=== PATIENT | female | born 2000 | race Caucasian/White ===

== ENCOUNTER 2021-01-09 11:44 | Emergency (ER) | payer OTHER, SELFPAY ==
[2021-01-09 11:50] VITALS: BP 131/76; PULSE 78; RESP 12; TEMP 36.8; O2SAT 100
--- NOTE | 2021-01-09 12:19 | ED.GENADULT ---
HPI - General Adult General Chief complaint: Wound/Laceration Stated complaint: lt pinkie finger laceration Source: patient and family Mode of arrival: ambulatory Limitations: no limitations History of Present Illness HPI narrative: Patient is a 20-year-old female who presents to the urgent care via POV for evaluation of the left at that digit laceration that occurred at 4 PM yesterday. She states she accidentally lacerated finger with a knife while cutting watermelon. She reports cleaning the wound with water and applying Neosporin. She is resting in a sterile gauze with a Band-Aid. Related Data Home Medications Medication Instructions Recorded Confirmed No Home Medications 01/09/21 01/09/21 Allergies Allergy/AdvReac Type Severity Reaction Status Date / Time No Known Allergies Allergy Verified 01/09/21 11:58 Review of Systems Review of Systems: Pertinent negatives fever, chills, sweats, malaise, poor p.o. intake, change in appetite, headache, LOC, dizziness, streaking, drainage, numbness, tingling, loss of sensation, foreign body sensation, deformity, sob, chest pain, and heart palpitations/murmurs. Exam Narrative: GENERAL: Well-appearing, well-nourished, and in no acute distress. HEAD: Normocephalic, atraumatic. No facial swelling appreciated. EYES: PERRLA and EOMI. No evidence of erythema, swelling, or drainage. ENT: Nares clear, no rhinorrhea or epistaxis.Mucous membranes moist and pink. Uvula is midline without erythema and swelling. No evidence of obstruction, petechial rash, cobblestoning, lesions, ulcers, erythema, swelling, exudates, peritonsillar abscess, tenting, or drooling. Breath odor and voice normal. NECK: Supple. No Lymphadenopathy or nuchal rigidity appreciated. CHEST: Bilateral lung bass are clear to auscultation. No respiratory distress. No evidence of cough or pleuritic cp upon examination. HEART: Regular rate and rhythm. No murmur, gallop, or rub heard. EXTREMITIES: Normal range of motion. No edema. SKIN: Warm, dry. 0.5 cm laceration located on palmar aspect of left fifth digit. No evidence of cellulitis, abscess, streaking, induration, abrasions, petechiae, hematoma, contusion, drainage, or bleeding. NEURO: No focal deficits. Alert and oriented x3. SPECIAL OBSERVATIONS: Smiling. Laughing. Course Vital Signs Vital signs: Vital Signs Temperature 98.2 F 01/09/21 11:50 Pulse Rate 78 01/09/21 11:50 Respiratory Rate 12 01/09/21 11:50 Blood Pressure 131/76 01/09/21 11:50 Pulse Oximetry 100 01/09/21 11:50 Temperature 98.2 F 01/09/21 11:50 Pulse Rate 78 01/09/21 11:50 Respiratory Rate 12 01/09/21 11:50 Blood Pressure 131/76 01/09/21 11:50 Pulse Oximetry 100 01/09/21 11:50 Due to an elevated blood pressure, I had a detailed discussion with the patient and/or guardian regarding the need for follow-up with their primary care provider within the next 3-4 days. Patient verbalized understanding and agreed. Procedures Orthopedic Splinting/Casting Injury #1: Splinting/Casting Date: 01/09/21 Side: left Upper Extremity Injury Location: finger (5th) Upper Extremity Immobilizer: aluminum form splint Pre-Procedure Neuro Vascular Exam: normal Post-Procedure Neuro Vascular Exam: normal Medical Decision Making Differential Diagnosis Differential Diagnosis: Laceration, avulsion, abrasion Medical Records Medical records reviewed: Yes I reviewed the external patient's medical records. Vital Signs Vital Signs: Vital Signs Temperature 98.2 F 01/09/21 11:50 Pulse Rate 78 01/09/21 11:50 Respiratory Rate 12 01/09/21 11:50 Blood Pressure 131/76 01/09/21 11:50 Pulse Oximetry 100 01/09/21 11:50 Temperature 98.2 F 01/09/21 11:50 Pulse Rate 78 01/09/21 11:50 Respiratory Rate 12 01/09/21 11:50 Blood Pressure 131/76 01/09/21 11:50 Pulse Oximetry 100 01/09/21 11:50 Reviewed Critical Care
== END 2021-01-09 12:47 | disposition home or self-care (01) ==
PROVIDERS: Emergency Provider Nurse Practitioner Family
DX: S61.217A Laceration without foreign body of left little finger without damage to nail, initial encounter (principal); W26.0XXA Contact with knife, initial encounter
CPT/HCPCS: 29130; 99212; G0463

== ENCOUNTER 2021-02-01 17:00 | Emergency (ER) | payer OTHER, SELFPAY ==
--- NOTE | 2021-02-01 17:04 | ED.FEMALEGU ---
HPI - Female Genitourinary General Chief complaint: Urogenital-Female Stated complaint: UTI SYMPTOMS History of Present Illness HPI Narrative: This is a 20-year-old female that presents to urgent care complaining of dysuria, frequency states she has a UTI. Patient states her symptoms started Saturday took Azo approximately 4 hours ago. Patient denies any fever nausea vomiting and/or diarrhea Related Data Allergies Allergy/AdvReac Type Severity Reaction Status Date / Time No Known Allergies Allergy Verified 01/09/21 11:58 Review of Systems Review of Systems: gi dysuria, frequency, urgency All systems reviewed & are unremarkable except as noted in HPI and below PMFSH Comments At time as signature, I have reviewed and agree with nursing past medical, social, surgical and family history. Please see nursing chart for further information. There is no relevant family history pertinent to the presenting complaint. Exam Narrative: GENERAL:Well-appearing, well-nourished, and in no acute distress. HEAD:Normocephalic, atraumatic. EYES: PERRLA and EOMI. ENT: Nares clear, no rhinorrhea or epistaxis. Mucous membranes moist. NECK: Supple. CHEST: No respiratory distress. HEART: Regular rate and rhythm. ABDOMEN: Soft, nontender, nondistended, normal active bowel sounds. Dysuria EXTREMITIES: Normal range of motion. No edema. SKIN: Warm, dry, no rash. NEURO: No focal deficits. Alert and oriented x3. Course Course Emergency Course: Patient took Azo prior to coming positive for blood, ketones, nitrates, bacteria Vital Signs Vital signs: Vital Signs Temperature 98.4 F 02/01/21 17:07 Pulse Rate 81 02/01/21 17:07 Respiratory Rate 16 02/01/21 17:07 Blood Pressure 127/90 02/01/21 17:07 Pulse Oximetry 98 02/01/21 17:07 Temperature 98.4 F 02/01/21 17:07 Pulse Rate 81 02/01/21 17:07 Respiratory Rate 16 02/01/21 17:07 Blood Pressure 127/90 02/01/21 17:07 Pulse Oximetry 98 02/01/21 17:07 MDM - Female Genitourinary Differential Diagnosis Differential diagnosis: Likely urinary tract infection, bacterial vaginosis, trichomoniasis, cervicitis and cystitis Discharge Plan Discharge Clinical Impression: UTI (urinary tract infection) Qualifiers: Urinary tract infection type: site unspecified Hematuria presence: without hematuria Qualified Code(s): N39.0 - Urinary tract infection, site not specified Patient Disposition: Home, Self-Care Condition: Stable Instructions: Antibiotic Form, Urinary Tract Infection in Women (ED) Additional Instructions: We will send a urine culture off to the lab; if the culture identifies an organism that the prescribed antibiotic will not treat, you will receive a phone call from an urgent care staff member and an appropriate antibiotic will be prescribed. Increase fluids especially water Avoid caffeine and carbonated beverages Antibiotic as directed Medicine as directed--cautioned it will cause your urine to be bright orange Tylenol/ibuprofen prn for pain or fever Follow-up with your primary care provider for urine recheck or seek ER visit if condition worsens with high fever, nausea, vomiting and severe back pain. Prescriptions: New nitrofurantoin monohyd/m-cryst [Macrobid] 100 mg capsule 100 mg PO Q12H 5 Days Qty: 10 RF: 0 Follow-up/Referrals: PHYSICIAN NOT ON STAFF,NONSTAFF [Primary Care Provider] -
[2021-02-01 17:07] VITALS: BP 127/90; PULSE 81; RESP 16; TEMP 36.9; O2SAT 98
== END 2021-02-01 17:23 | disposition home or self-care (01) ==
PROVIDERS: Emergency Provider Nurse Practitioner Family
DX: N39.0 Urinary tract infection, site not specified (principal)
CPT/HCPCS: 81003; 87077; 87086; 87088; 87186; 99213; G0463

== ENCOUNTER 2021-05-31 14:57 | Emergency (ER) | payer OTHER, SELFPAY ==
[2021-05-31 15:05] VITALS: BP 137/78; PULSE 80; RESP 16; TEMP 36.8; O2SAT 100
[2021-05-31 15:07] VITALS: BP 137/78; PULSE 80; RESP 16; TEMP 36.8; O2SAT 100
--- NOTE | 2021-05-31 15:07 | ED.GENADULT ---
HPI - General Adult General Chief complaint: Dizziness Stated complaint: Nausea,Dizziness Time Seen by Provider: 05/31/21 15:07 Source: patient Mode of arrival: ambulatory Limitations: no limitations History of Present Illness HPI narrative: 20-year-old female presented for complaint of dizziness, onset yesterday. She endorses room spinning sensation starting at 0400 yesterday which progressed throughout the day. She endorses associated palpitations and nausea. 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 Today she woke feeling fatigued and hung over. Endorses history of occasional similar episodes of dizziness while standing, stating this is different because it occurs while seated. She denies shortness of breath, cough, sinus pressure congestion, headache, ear pain, vomiting, diarrhea, urinary complaints, fever or chills. She has taken several negative home tests. Denies significant medical history. No changes in medication. Fully vaccinated for Covid and flu. Related Data Home Medications Medication Instructions Recorded Confirmed norethindrone ac-eth estradiol 1 tablet DIRECTED 05/31/21 05/31/21 [Microgestin 05/25 ()] Allergies Allergy/AdvReac Type Severity Reaction Status Date / Time No Known Allergies Allergy Verified 01/09/21 11:58 Review of Systems Review of Systems: CONSTITUTIONAL: Denies body aches, fever, chills, or sweats. EYES: Denies visual changes, redness, or discharge. ENT: Denies rhinorrhea, congestion, sore throat, or otalgia. CARDIOVASCULAR: Denies chest pain, or edema. RESPIRATORY: Denies cough or dyspnea. GASTROINTESTINAL: Denies abdominal pain, vomiting, or diarrhea. GENITOURINARY: Denies dysuria or hematuria. SKIN: Denies rash, itching, or wounds. MUSCULOSKELETAL: Denies back pain, joint pain, or myalgia. NEUROLOGIC: Endorses dizziness ,denies headache, numbness, tingling, or weakness. PSYCH: Denies depression or anxiety. All systems reviewed & are unremarkable except as noted in HPI and below PMFSH Comments At time of signature, I have reviewed and agree with nursing past medical, surgical, social and family history unless otherwise noted. Please see nursing chart for further information. There is no relevant family history pertinent to the presenting complaint Exam Narrative: GENERAL: Well-appearing, well-nourished, and in no acute distress. HEAD: Normocephalic, atraumatic. EYES: EOMI. No redness or drainage. Conjunctivae normal. ENT: Mucous membranes pink and moist. No rhinorrhea. TMs normal bilaterally. Throat normal. Uvula midline. NECK: Normal AROM. Supple. No lymphadenopathy. CHEST: No respiratory distress. Clear to auscultation. HEART: Regular rate and rhythm. No murmur appreciated. Normal peripheral pulses. ABDOMEN: Soft, nontender, nondistended, normal active bowel sounds. MUSCULOSKELETAL: No bony tenderness. EXTREMITIES: Normal range of motion. No edema. SKIN: Warm, dry, no rash. Capillary refill normal. Normal skin turgor. NEURO: No focal deficits. Alert and oriented x3. Gait steady. PSYCH: Normal affect. No signs of depression or anxiety. Course Course Emergency Course: flu neg, urine dip and preg neg, EKG reviewed with pt Patient is aware of diagnosis and possible causes of dizziness/nausea, understands and agrees to treatment plan. Anticipatory guidance given. Patient agrees to follow-up as directed and is aware of reasons to seek care at the emergency department. Portions of this record may have been created with voice recognition software Level of Care: Express Care Visit Vital Signs Vital signs: Vital Signs Temperature 98.2 F 05/31/21 15:05 Pulse Rate 80 05/31/21 15:05 Respiratory Rate 16 05/31/21 15:05 Blood Pressure 137/78 05/31/21 15:05 Pulse Oximetry 100 05/31/21 15:05 Temperature 98.2 F 05/31/21 15:05 Pulse Rate 80 05/31/21 15:05
--- NOTE | 2021-05-31 15:24 | ECG_ITS ---
Measurements Intervals [place] Rate: 79 P: 20 RI: 158 QRS: 92 QRSD: 78 T: 40 QT: 378 QTc: 435 Interpretive Statements SINUS RHYTHM RIGHT AXIS DEVIATION MINIMAL Q WAVES- ANTEROLAT/INF LEADS BORDERLINE ECG Electronically Signed On 05-31-2021 15:53:46 [employer]DER[employer] by Morales Alva D.O.
[2021-05-31 15:39] LABS: Glucose Point of Care 88 mg/dl (65-105)
== END 2021-05-31 16:13 | disposition home or self-care (01) ==
PROVIDERS: Emergency Provider Nurse Practitioner Family
DX: R42 Dizziness and giddiness (principal)
CPT/HCPCS: 81003; 81025; 82948; 87804; 93005; 99213; G0463

== ENCOUNTER 2021-12-15 14:05 | Outpatient (CLI) | payer OTHER, SELFPAY ==
[2021-12-18 17:06] LABS: NIL 0.02 IU/mL; Quantiferon TB Plus, 1T NEGATIVE (NEGATIVE)
== END 2021-12-15 14:06 | disposition home or self-care (01) ==
LOC: ANHGOSHLAB 14:07
DX: Z00.00 Encounter for general adult medical examination without abnormal findings (principal)
CPT/HCPCS: 36415; 86480

== ENCOUNTER 2022-07-21 23:38 | Emergency (ER) | payer OTHER, SELFPAY ==
--- NOTE | ~2022-07-21 | XR_ITS ---
EXAMINATION: XR chest 2V 07/22/2022 00:31 INDICATION: Chest pain PROCEDURE: PA and lateral views of the chest COMPARISON: No prior studies for comparison. FINDINGS: The lungs are clear. The cardiomediastinal silhouette is within normal limits. There are no pleural effusions. There is no pneumothorax suspected. There is scoliosis. IMPRESSION: 1: NO ACUTE CARDIOPULMONARY DISEASE. Reviewed, dictated and finalized at location A.
[2022-07-21 23:42] VITALS: BP 138/72; PULSE 97; RESP 16; TEMP 36.5; O2SAT 100
--- NOTE | 2022-07-21 23:42 | ECG_ITS ---
Measurements Intervals [place] Rate: 86 P: 52 IA: 169 QRS: 89 QRSD: 88 T: 30 QT: 378 QTc: 455 Interpretive Statements SINUS RHYTHM VENTRICULAR PREMATURE COMPLEX BASELINE ARTIFACT- I, II, III, AVR, AVL, AVF, V1-V2, V4-V6 BORDERLINE ECG COMPARED TO ECG 05/31/2021 15:34:32 NO SIGNIFICANT CHANGES Electronically Signed On 07-22-2022 8:09:42 CDT by Morales Alva D.O.
[2022-07-22 00:32] LABS: INR 1.1; Prothrombin Time 13.3 Seconds (11.1-14.7)
[2022-07-22 00:33] LABS: Partial Thromboplastin Time 29.3 SECONDS (22.3-36.8)
[2022-07-22 00:40] LABS: Troponin I < 0.012 ng/mL (0.000-0.034)
[2022-07-22 00:42] LABS: Basophils Absolute Auto 0.1 K/mm3 (0.0-0.1); Basophils Percent Auto 0.6 % (0.2-1.2); Eosinophils Absolute Auto 0.1 K/mm3 (0-0.3); Eosinophils Percent Auto 1.5 % (0-4.4); Hematocrit 39.3 % (37.0-47.0); Hemoglobin 12.7 g/dL (12.0-15.0); Immature Granulocyte Absolute 0.03 K/mm3 (0.00-0.031); Immature Granulocyte Percent A 0.3 % (0-0.5); Lymphocytes Absolute Auto 3.62 K/mm3 (0.9-3.2); Lymphocytes Percent Auto 40.6 % (18.3-44.2); Mean Corpuscular HGB Conc 32.3 g/dl (32-36); Mean Corpuscular Volume 86.6 fl (80-100); Monocytes Absolute Auto 0.6 K/mm3 (0.1-0.6); Monocytes Percent Auto 6.4 % (2.6-8.5); Neutrophils Absolute Auto 4.5 K/mm3 (1.3-6.7); Neutrophils Percent Auto 50.6 % (45.5-73.1); Platelet Count Result 229 k/mm3 (150-375); Red Blood Count 4.54 M/mm3 (4.2-5.4); Red Cell Distribution Width 12.2 % (11.5-14.5); White Blood Count 8.9 K/mm3 (4.5-10.0)
[2022-07-22 01:27] VITALS: BP 115/78; PULSE 78; RESP 16; O2SAT 100
--- NOTE | 2022-07-22 01:44 | ED.GENADULT ---
HPI - General Adult General Chief complaint: Chest Pain Stated complaint: chest pain Time Seen by Provider: 07/22/22 01:31 History of Present Illness HPI narrative: a 21-year-old female presenting with a chief complaint of chest pain. Patient says that her symptoms started originally 3 weeks ago. while she was driving she had a minor nosebleed. About 5 minutes later she started to feel like her heart was racing. It is associated with a chest tightness, in the center of her chest, that is nonradiating, 8 out 10 intensity, and resolved After 5 minutes without intervention.. she has never experienced this sensation before. There are no exacerbating or alleviating factors. This is not associated with nausea vomiting diaphoresis exertion. During the incident she felt like she was going to . She had 2 more events in the last 2 weeks that were similar. Patient is feeling more anxious because she is scared that 1 of these events is going to occur again. The patient denies risk factors for DVT / PE. No episodes of syncope. No lower extremity edema or pleuritic chest pain. Related Data Home Medications Medication Instructions Recorded Confirmed norethindrone acetate 1 mg-ethinyl 1 tablet DIRECTED 05/31/21 05/31/21 estradiol 20 mcg tablet (Microgestin) Allergies Allergy/AdvReac Type Severity Reaction Status Date / Time No Known Allergies Allergy Verified 07/21/22 23:50 [facility] Past Medical History Medical History Healthy female adult Social History Social History Social History: Drinks alcohol occasionally, denies alcohol or drug use. Exam Narrative: APPEARANCE: No apparent distress. Head: atraumatic. EYES: EOMI, NOSE: Atraumatic NECK: Trachea midline RESPIRATORY: No increased rate of breathing Clear to auscultation bilaterally CARDIOVASCULAR: RRR, no peripheral edema ABDOMINAL: Non-distended soft nontender no guarding or rebound, no CVA tenderness MUSCULOSKELETAl: No obvious deformities NEURO: Alert. Moving 4/4 extremities SKIN:: Warm, dry. Normal color PSYCHIATRIC: Normal affect Course Vital Signs Vital signs: Vital Signs Temperature 97.7 F 07/21/22 23:42 Pulse Rate 97 07/21/22 23:42 Respiratory Rate 16 07/21/22 23:42 Blood Pressure 138/72 07/21/22 23:42 Pulse Oximetry 100 07/21/22 23:42 Oxygen Delivery Room Air 07/21/22 23:42 Temperature 97.7 F 07/21/22 23:42 Pulse Rate 78 07/22/22 01:27 Respiratory Rate 16 07/22/22 01:27 Blood Pressure 115/78 07/22/22 01:27 Pulse Oximetry 100 07/22/22 01:27 Oxygen Delivery Room Air 07/21/22 23:42 Medical Decision Making MDM Narrative Medical decision making narrative: -Presentation: 21-year-old female presenting with Episodes of anxiety and tachycardia. chest pain workup was ordered per nursing protocol. 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 She lives with her boyfriend Herbert -External Chart Review: none -Hx from independent Sources: Cristian at bedside -Discussion of Management/Consultants: none -Independent interpretation of studies: Chest x-ray showed no acute cardiopulmonary process. CBC BMP and troponins were negative. Independent EKG interpretation: Rhythm [sinus], Rate [86], [place] -[normal], [place] -[normal], QRS [narrow], QTC [normal], T waves -[negative for concerning inversions], ST Segments - [Negative for concerning elevations] Final interpretations: normal sinus rhythm with occasional PVCs Dx tests considered but not ordered: PE studies, patient is PERC negative - Procedures: none -Interventions: none -Shared decision making / Disposition: patient's workup was negative. she was monitored in the ED with no cardiac dysrhythmias
[2022-07-22 01:48] LABS: Alanine Aminotransferase 19 U/L (6-35); Alkaline Phosphatase 76 U/L (38-126); Anion Gap 12 mmol/L (8-16); Aspartate Amino Transferase 22 U/L (14-36); Bilirubin,Total 0.4 mg/dL (0.2-1.3); Blood Urea Nitrogen 15 mg/dL (7-17); Calcium 9.4 mg/dL (8.4-10.2); Carbon Dioxide 25 mmol/L (22-30); Chloride 102 mmol/L (98-107); Estimated CRCL calculation 100 ml/min; Estimated Glomerular Filt Rate > 60; Glucose 133 mg/dL (65-110); Lipase 132 U/L (23-300); Potassium 3.5 mmol/L (3.4-5.0); Sodium 139 mmol/L (137-145)
== END 2022-07-22 02:18 | disposition home or self-care (01) ==
PROVIDERS: Emergency Provider Emergency Medicine
DX: F41.0 Panic disorder [episodic paroxysmal anxiety] (principal)
CPT/HCPCS: 36415; 71046; 80053; 83690; 84484; 85025; 85610; 85730; 93005; 99283